=== PATIENT | male | born 1975 | race Caucasian/White ===

== ENCOUNTER 2024-02-19 20:23 | Emergency (ER) | payer OTHER ==
[2024-02-19] MEDS: Diphtheria,Pertussis(Acell),Tetanus Vaccine 0.5 ML Syringe IM ONE (21:15)
[2024-02-19] MEDS: cefTRIAXone 1 GM Vial IM ONE (21:40)
== END 2024-02-19 21:54 | disposition home or self-care (01) ==
LOC: FB.ED 20:23
DX: S91.341A Puncture wound with foreign body, right foot, initial encounter (principal); Z88.0 Allergy status to penicillin; Z23 Encounter for immunization; X58.XXXA Exposure to other specified factors, initial encounter
CPT/HCPCS: 90471; 90715; 96372; 99283-25; J0696